=== PATIENT | male | born 1990 | race Caucasian/White ===

== ENCOUNTER 2018-02-24 18:28 | Emergency (ER) | payer OTHER ==
[~2018-02-24] VITALS: Ht 167.6 cm; Wt 86.0 kg
[2018-02-24 18:42] VITALS: PULSE 88; RESP 16; TEMP 98.7; O2SAT 100
[2018-02-24] MEDS ORDERED: SODIUM CHLOR 0.9% 1000 ML INJ 1,000 ML IV ONE (19:15)
[2018-02-24] MEDS ORDERED: KETOROLAC TROMETHAMINE 30 MG/ML (IVP) VIAL IV PUSH ONE (19:15)
--- NOTE | 2018-02-24 19:33 | RADRPT ---
EXAM DATE/TIME: 02/24/2018 19:16 [place] COMPARISON: No previous studies available for comparison. INDICATIONS : Productive cough for 1 week. MEDICAL HISTORY : Tuberculosis. SURGICAL HISTORY : None. ENCOUNTER: Initial ACUITY: 1 week PAIN SCORE: 0/10 LOCATION: Bilateral chest FINDINGS: PA and lateral views of the chest demonstrate the lungs to be symmetrically aerated without evidence of mass, infiltrate or effusion. The cardiomediastinal contours are unremarkable. Osseous structure s are grossly intact. CONCLUSION: Normal 2 view chest x-ray. Rodrigo Mendoza MD on February 24, 2018 at 19:30 Board Certified Radiologist. This report was verified electronically.
[2018-02-24 19:43] LABS: AUTOMATED NEUTROPHIL # 7.8 TH/MM3 (1.8-7.7); BASOPHIL # 0.1 TH/MM3 (0-0.2); BASOPHIL % 1.1 % (0.0-2.0); EOSINOPHIL # 0.4 TH/MM3 (0-0.4); EOSINOPHIL % 3.7 % (0.0-4.0); HEMATOCRIT 45.7 % (39.0-51.0); HEMOGLOBIN 15.4 GM/DL (13.0-17.0); LYMPH % 18.4 % (9.0-44.0); MEAN CELL VOLUME 80.4 FL (80.0-100.0); MEAN CORPUSCULAR HGB CONC 33.7 % (32.0-36.0); MEAN PLATELET VOLUME 9.2 FL (7.0-11.0); MONOCYTE # 0.8 TH/MM3 (0-0.9); NEUT % 69.8 % (16.0-70.0); PLATELET COUNT 275 TH/MM3 (150-450); RED BLOOD COUNT 5.69 MIL/MM3 (4.50-5.90); RED CELL DISTRIBUTION WIDTH 12.7 % (11.6-17.2); WHITE BLOOD COUNT 11.1 TH/MM3 (4.0-11.0)
[2018-02-24 19:53] LABS: CHLORIDE 105 MEQ/L (98-107); SODIUM (NA) 137 MEQ/L (136-145)
[2018-02-24 19:56] LABS: ALBUMIN 4.1 GM/DL (3.4-5.0); CALCIUM 9.3 MG/DL (8.5-10.1)
[2018-02-24 19:57] LABS: BICARBONATE 27.8 MEQ/L (21.0-32.0); BLOOD UREA NITROGEN 10 MG/DL (7-18); GLUCOSE,RANDOM 97 MG/DL (74-106)
[2018-02-24 20:00] LABS: ALT (GPT) 34 U/L (12-78); AST (GOT) 17 U/L (15-37); GLOMERULAR FILTRATION RATE 80 ML/MIN (>89)
[2018-02-24 20:01] LABS: TOTAL BILIRUBIN ADULT 0.1 MG/DL (0.2-1.0); TOTAL PROTEIN 8.5 GM/DL (6.4-8.2)
[2018-02-24 20:02] LABS: ALKALINE PHOSPHATASE 118 U/L (45-117)
[2018-02-24] MEDS ORDERED: ZITHTAB PO (20:27)
--- NOTE | 2018-02-24 20:27 | PD ---
HPI Chief Complaint: Respiratory Symptoms Time Seen by Provider: 18:58 Travel History International Travel<30 days: No Contact w/Intl Traveler<30days: No Traveled to known affect area: No History of Present Illness HPI Patient is a 28-year-old male who comes in complaining of cough and cold symptoms for the past week. He says he has been coughing up greenish sputum. He describes feeling fatigued and having body aches. He says he has not had a fever. Denies shortness of breath. He says he only has chest pain when he coughs. 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 He never had any symptoms or evidence of active TB, but he did complete a nine-month course of isoniazid. Severity is mild. PFSH Past Medical History ?: Not Social History Alcohol Use: Yes (occansional) Tobacco Use: No Substance Use: No Allergies-Medications (Allergen,Severity, Reaction): Coded Allergies: No Known Allergies (Unverified , 02/24/18) Review of Systems Except as stated in HPI: all other systems reviewed are Neg General / Constitutional: No: Fever, Chills HENT: No: Headaches, Lightheadedness Cardiovascular: No: Chest Pain or Discomfort Respiratory: Positive: Cough, No: Shortness of Breath Gastrointestinal: No: Nausea, Vomiting Musculoskeletal: Positive: Myalgias Skin: No Rash, No Change in Pigmentation Neurologic: No: Weakness, Dizziness Physical Exam Narrative GENERAL: Awake and alert, in no acute distress. SKIN: Focused skin assessment warm/dry. HEAD: Atraumatic. Normocephalic. EYES: Pupils equal and round. No scleral icterus. No injection or drainage. ENT: Mucous membranes pink and moist. NECK: Trachea midline. No JVD. CARDIOVASCULAR: Regular rate and rhythm. No murmur appreciated. RESPIRATORY: No accessory muscle use. Clear to auscultation. Breath sounds equal bilaterally. GASTROINTESTINAL: Abdomen soft, non-tender, nondistended. MUSCULOSKELETAL: No obvious deformities. No clubbing. No cyanosis. No edema. NEUROLOGICAL: Awake and alert. No obvious cranial nerve deficits. Motor grossly within normal limits. Normal speech. PSYCHIATRIC: Appropriate mood and affect; insight and judgment normal. Data Data Last Documented VS Vital Signs Date Time Temp Pulse Resp B/P (MAP) Pulse Ox O2 Delivery O2 Flow Rate FiO2 4/23/18 19:12 16 100 Room Air 02/24/18 18:42 98.7 88 Orders Orders Chest, Pa & Lat (02/24/18 ) Iv Access Insert/Monitor (02/24/18 19:13) Complete Blood Count With Diff (02/24/18 19:13) Comprehensive Metabolic Panel (02/24/18 19:13) Influenzae A/B Antigen (02/24/18 19:13) Sodium Chlor 0.9% 1000 Ml Inj (Ns 1000 M (02/24/18 19:15) Ketorolac Inj (Toradol Inj) (02/24/18 19:15) Labs Laboratory Tests Test 02/24/18 19:30 White Blood Count 11.1 TH/MM3 Red Blood Count 5.69 MIL/MM3 Hemoglobin 15.4 GM/DL Hematocrit 45.7 % Mean Corpuscular Volume 80.4 FL Mean Corpuscular Hemoglobin 27.0 PG Mean Corpuscular Hemoglobin Concent 33.7 % Red Cell Distribution Width 12.7 % Platelet Count 275 TH/MM3 Mean Platelet Volume 9.2 FL Neutrophils (%) (Auto) 69.8 % Lymphocytes (%) (Auto) 18.4 % Monocytes (%) (Auto) 7.0 % Eosinophils (%) (Auto) 3.7 % Basophils (%) (Auto) 1.1 % Neutrophils # (Auto) 7.8 TH/MM3 Lymphocytes # (Auto) 2.0 TH/MM3 Monocytes # (Auto) 0.8 TH/MM3 Eosinophils # (Auto) 0.4 TH/MM3 Basophils # (Auto) 0.1 TH/MM3 CBC Comment DIFF FINAL Differential Comment Blood Urea Nitrogen 10 MG/DL Creatinine 1.10 MG/DL Random Glucose 97 MG/DL Total Protein 8.5 GM/DL Albumin 4.1 GM/DL Calcium Level 9.3 MG/DL Alkaline Phosphatase 118 U/L Aspartate Amino Transf (AST/SGOT) 17 U/L Alanine Aminotransferase (ALT/SGPT) 34 U/L Total Bilirubin 0.1 MG/DL Sodium Level 137 MEQ/L Potassium Level 3.8 MEQ/L Chloride Level 105 MEQ/L Carbon Dioxide Level 27.8 MEQ/L Anion Gap 4 MEQ/L Estimat Glomerular Filtration Rate 80 ML/MIN MDM Medical Decision Making Medical Screen Exam Complete: Yes Emergency Medical Condition: Yes Medical Record Reviewed: Yes Differential Diagnosis Pneumonia versus bronchitis versus influenza versus viral illness Narrative Course Patient is a 28-year-old male comes in complaining of cough and body aches. Exam shows no acute ab normality's. IV established, labs sent. Labs show a white blood cell count of 11.1. Given IV fluids and Toradol. Chest x-ray performed shows no acute abnormalities. Last 24 hours Impressions Chest X-Ray 02/24/18 0000 Signed Impressions: Service Date/Time: Saturday, February 24, 2018 19:16 - CONCLUSION: Normal 2 view chest x-ray. Rodrigo Mendoza MD he will be discharged with prescription for azithromycin due to duration of symptoms. Does drink plenty of fluids and get some rest. Advised follow-up with a primary care doctor. Advised return to the ED as needed for any worsening symptoms. Diagnosis Primary Impression: Cough Patient Instructions: Acute Cough (ED), General Instructions Additional Instructions: Take all of your antibiotic. Take ibuprofen as needed for pain. Drink plenty of fluids. Follow-up with a primary care doctor. Return to the ED as needed for any worsening symptoms. Scripts Azithromycin (Zithromax Z-Jamel) 250 Mg Dspk 250 MG PO DIRECTED for Infection, #1 DSPK 0 Refills 500 MG (2 tabs) day 1, then 1 tab days 2-5. Prov: Anika Leger MD 02/24/18 Disposition: 01 DISCHARGE HOME Condition: Stable Anika Leger MD Feb 24, 2018 20:27
[2018-02-24 20:40] VITALS: BP 133/69
== END 2018-02-24 20:40 | disposition home or self-care (01) ==
LOC: PHED 18:28
DX: R05 Cough (principal); M79.1 Myalgia
CPT/HCPCS: 71046; 80053; 85025; 87804; 96361; 96374; 99284; J1885; J7030